=== PATIENT | female | born 1945 | race Hispanic/Latino ===

== ENCOUNTER 2020-06-14 05:27 | Emergency (ER) | payer MEDICARE ==
[2020-06-14 06:34] VITALS: BP 119/71
--- NOTE | 2020-06-14 07:24 | XRay Report ---
LEFT FOOT RADIOGRAPH, 3 VIEWS INDICATION / CLINICAL INFORMATION: Left small toe pain COMPARISON: None available. FINDINGS: BONES / JOINT(S): There is a mildly displaced transverse fracture of the small toe proximal phalanx. There is no evidence of intra-articular extension. SOFT TISSUES: Prominent soft tissue swelling of the dorsum of the foot. ADDITIONAL FINDINGS: None. Signer Name: Beatris Johnston MD Signed: 06/14/2020 7:20 AM Workstation Name: [id number]
--- NOTE | 2020-06-14 07:37 | Emergency Department Report ---
ED General Adult HPI - General Chief complaint: Extremity Injury, Lower Stated complaint: STUBBED TOE Time Seen by Provider: 06/14/20 07:15 Source: patient, family Mode of arrival: Stretcher Limitations: No Limitations - History of Present Illness Initial comments: 74-year-old female patient with history of peripheral edema presents emergency department complaints of traumatic left foot pain starting this morning. Patient states she accidentally struck the lateral aspect of the left foot while she was attempting to ambulate to the bathroom this morning. There is no subsequent fall, head injury, or loss of consciousness. No history of prior injuries to the left foot. Patient has been able to bear weight since the injury occurred. No medications prior to arrival. Denies hip pain, knee pain, leg pain, ankle pain, paresthesias, numbness, skin color changes. Denies other complaints at this time. - Related Data Previous Rx's Medication Instructions Recorded Last Taken Type Naproxen [Naprosyn] 500 mg PO BID #20 tablet 06/14/20 Unknown Rx Allergies Allergy/AdvReac Type Severity Reaction Status Date / Time Penicillins Allergy Rash Verified 06/14/20 06:37 ED Review of Systems ROS: Stated complaint: STUBBED TOE Other details as noted in HPI Other: CARDIOVASCULAR: Negative for chest pain. PULMONARY: Negative for dyspnea. GASTROINTESTINAL: Negative for abdominal pain. MUSCULOSKELETAL: Positive for foot pain. NEUROLOGICAL: Negative for headache. INTEGUMENTARY: Negative for ecchymosis. ED Past Medical Hx - Past Medical History Previous Medical History?: Yes Hx Hypertension: Yes - Surgical History Past Surgical History?: No - Social History Smoking Status: Former Smoker Substance Use Type: None - Medications Home Medications: Home Medications Medication Instructions Recorded Confirmed Last Taken Type Naproxen [Naprosyn] 500 mg PO BID #20 tablet 06/14/20 Unknown Rx ED Physical Exam - General Limitations: No Limitations - Other Other exam information: General: Awake, appropriately interactive, no acute distress. Neck: Supple. Full range of motion intact. Cardiovascular: Normal peripheral perfusion. Pulmonary: No respiratory distress. Patient is speaking normally without use of accessory muscles. Skin: No apparent rashes or lesions. Neurological: No facial asymmetry. Speech is clear. Follows commands. Patient is alert and oriented. Musculoskeletal: Tenderness to palpation along the lateral aspect of the dorsum of the left foot and left small toe with soft tissue swelling. No nail injury. No plantar ecchymosis. Distal neurovascular and motor/sensory function intact. No ankle tenderness. Psych: Cooperative. Appropriate mood and affect. ED Course Vital Signs 06/14/20 06:27 Temperature 98.5 F Pulse Rate 69 Respiratory 18 Rate Blood Pressure 119/71 O2 Sat by Pulse 94 Oximetry ED Medical Decision Making - Radiology Data [facility] [address] [place] [address] XRay Report Signed Patient: MISSY DUBON MR#: [id number] 9 : 1945 Acct:[id number] Age/Sex: 74 / F ADM Date: 06/14/20 Loc: ED Attending Dr: Ordering Physician: ALEX BATISTA MD Date of Service: 06/14/20 Procedure(s): XR foot 3+V LT Accession Number(s): [id number] cc: ALEX BATISTA MD Fluoro Time In Minutes: LEFT FOOT RADIOGRAPH, 3 VIEWS INDICATION / CLINICAL INFORMATION: Left small toe pain COMPARISON: None available. FINDINGS: BONES / JOINT(S): There is a mildly displaced transverse fracture of the small toe proximal phalanx. There is no evidence of intra-articular extension. SOFT TISSUES: Prominent soft tissue swelling of the dorsum of the foot. ADDITIONAL FINDINGS: None. Signer Name: Beatris Johnston MD Signed: 06/14/2020 7:20 AM Workstation Name: [id number] Transcribed By: [facility] Dictated By: Beatris Johnston MD Electronically Authenticated By: Beatris Johnston MD Signed Date/Time: 06/14/20719 DD/ 7 TD/TT: - Medical Decision Making Differential diagnosis including but not limited to: sprain, strain, fracture, contusion, dislocation On reevaluation, patient is stable. Repeat neurovascular exam remains intact. X-ray shows mildly displaced transverse fracture of the small toe proximal phalanx. The toe was immobilized and patient was discharged home with appropriate analgesics and referral to orthopedics for close outpatient follow- up. Patient was offered crutches but politely refused, since she already has a pair at home. Patient expressed understanding and is agreeable to plan of care. RICE precautions discussed. Strict return precautions provided. Repeat exam is unremarkable and benign. History, exam, diagnostic testing, and current condition do not suggest worrisome pathology to warrant further testing, continued ED treatment, admission, or surgical evaluation at this point. Given the low probability of a significant medical illness, it would be more likely to result in harm than benefit to perform further testing at this stage. Discussed findings, presumptive diagnosis, need for follow-up and specific signs/symptoms that should prompt immediate return to the emergency department. Instructions were explained in detail to the patient in addition to giving written discharge information. Patient expressed understanding and was given the opportunity to ask questions, all of which were satisfactorily answered prior to discharge home. Critical care attestation.: If time is entered above; I have spent that time in minutes in the direct care of this critically ill patient, excluding procedure time. ED Disposition Clinical Impression: Phalanx fracture, foot Qualifiers: Encounter type: initial encounter Toe: lesser toe Fracture type: closed Phalanx: proximal Fracture alignment: displaced Laterality: left Qualified Code(s): S92.512A - Displaced fracture of proximal phalanx of left lesser toe(s), initial encounter for closed fracture Disposition: TO HOME OR SELFCARE Is pt being admited?: No Does the pt Need Aspirin: No Condition: Stable Instructions: Toe Fracture, [id number] Additional Instructions: Take Tylenol every 4 hours as needed for pain. Take Naprosyn twice daily with food as needed for pain. Use tape for immobilization as needed. Use crutches as needed. Keep left foot elevated as often as possible to reduce swelling. Apply ice to the affected area as often as possible to reduce swelling. Follow-up with Dr. Bird, orthopedics, this week. Call Tuesday to schedule an appointment. Return to the emergency department immediately for new or worsening symptoms. Prescriptions: Naproxen [Naprosyn] 500 mg PO BID #20 tablet Referrals: JEISON BIRD MD [Staff Physician] - 3-5 Days Time of Disposition: 07:37
== END 2020-06-14 09:15 | disposition home or self-care (01) ==
LOC: EDBD → ED 05:27
DX: S92.512A Displaced fracture of proximal phalanx of left lesser toe(s), initial encounter for closed fracture (principal); I10 Essential (primary) hypertension; Z87.891 Personal history of nicotine dependence; Z79.899 Other long term (current) drug therapy; Z88.0 Allergy status to penicillin; W22.8XXA Striking against or struck by other objects, initial encounter; Y93.89 Activity, other specified; Y92.89 Other specified places as the place of occurrence of the external cause; Y99.8 Other external cause status